=== PATIENT | female | born 1965 | race Caucasian/White ===

== ENCOUNTER → 2021-08-29 | Outpatient (CLI) | payer BC ==
--- NOTE | 2021-08-29 16:45 | RAD ---
MR#: [id number] Date of Study: 08/29/2021 Ordering Physician: OSCAR FRANKS, Referring Physician: OSCAR FRANKS, Tech: Milly Mcclain RVT, CIRILOAZ APPROVED REPORT Patient Location : OUT-PATIENT Indications Lower Extremity Edema : Grayscale images of the bilateral saphenofemoral junctions are grossly unremarkable. The right great saphenous vein measures 5.7 mm and has no evidence of reflux. The left great sapheno us vein measures 5.1 mm and has a maximum reflux time of 2.5 seconds. The bilateral lesser saphenous veins do not reveal any evidence of reflux. Greater Saphenous Veins (GSV) Significant venous relux noted in the LEFT GSV at the following levels : Mid Calf Critical Notification Critical Value: No <Conclusion> 1. Positive for reflux in the left greater saphenous vein only Signed by : Leonel Jackson, Electronically Approved : 08/29/2021 16:45:26
== END ==
LOC: US 13:26
PROVIDERS: ATTEND Internal Medicine Cardiovascular Disease
DX: R60.9 Edema, unspecified (principal); R06.00 Dyspnea, unspecified
CPT/HCPCS: 93970